=== PATIENT | male | born 2000 | race African-American/Black ===

== ENCOUNTER 2021-03-26 22:08 | Emergency (ER) | payer MEDICAID ==
--- NOTE | 2021-03-27 01:49 | Emergency Department Report ---
ED General Adult HPI - General Chief complaint: Arrhythmia/Palpitations Stated complaint: ANXIETY Source: patient Mode of arrival: Ambulatory Limitations: No Limitations - History of Present Illness Initial comments: 21-year-old male presents to the ED complaint of anxiety attack prior to arrival. Patient states that he drinks several red bull and mix with alcohol x1 week ago. He states since then he has been feeling palpitation but since in the ED palpitation has resolved. He has no known medical history. Patient denies any chest pain, nausea ,vomiting or abdominal pain at present. No acute distress noted .No ill appearance noted. Onset/Timin -: hour(s) Severity scale (0 -10): 0 Associated Symptoms: denies other symptoms - Related Data Allergies Allergy/AdvReac Type Severity Reaction Status Date / Time No Known Allergies Allergy Unverified 03/27/21 00:37 ED Review of Systems ROS: Stated complaint: ANXIETY Other details as noted in HPI Constitutional: denies: chills, fever Eyes: denies: eye pain, eye discharge, vision change ENT: denies: ear pain, throat pain Respiratory: denies: cough, shortness of breath, wheezing Cardiovascular: denies: chest pain, palpitations Endocrine: no symptoms reported Gastrointestinal: denies: abdominal pain, nausea, diarrhea Genitourinary: denies: urgency, dysuria Musculoskeletal: denies: back pain, joint swelling, arthralgia Skin: denies: rash, lesions Neurological: denies: headache, weakness, paresthesias Psychiatric: denies: anxiety, depression Hematological/Lymphatic: denies: easy bleeding, easy bruising ED Past Medical Hx - Past Medical History Previous Medical History?: Yes Hx Asthma: Yes - Surgical History Past Surgical History?: No - Social History Smoking Status: Current Every Day Smoker Substance Use Type: Marijuana ED Physical Exam - General Limitations: No Limitations General appearance: alert, in no apparent distress - Head Head exam: Present: atraumatic, normocephalic - Eye Eye exam: Present: normal appearance - ENT ENT exam: Present: mucous membranes moist - Neck Neck exam: Present: normal inspection - Respiratory Respiratory exam: Present: normal lung sounds bilaterally. Absent: respiratory distress - Cardiovascular Cardiovascular Exam: Present: regular rate, normal rhythm. Absent: systolic murmur, diastolic murmur, rubs, gallop - GI/Abdominal GI/Abdominal exam: Present: soft, normal bowel sounds - Rectal Rectal exam: Present: deferred - Extremities Exam Extremities exam: Present: normal inspection - Back Exam Back exam: Present: normal inspection - Neurological Exam Neurological exam: Present: alert, oriented X3 - Psychiatric Psychiatric exam: Present: normal affect, normal mood - Skin Skin exam: Present: warm, dry, intact, normal color. Absent: rash ED Course Vital Signs 03/27/21 03/27/21 00:22 02:45 Temperature 98.6 F 97.6 F Pulse Rate 86 78 Respiratory 18 18 Rate Blood Pressure 140/84 Blood Pressure 133/78 [Left] O2 Sat by Pulse 99 98 Oximetry ED Medical Decision Making - EKG Data Rate: normal - Medical Decision Making 21-year-old male presents to the ED complaint of anxiety attack prior to arrival. State that he drinks several red bull and mix with alcohol x1 week ago. He states since then he has been feeling palpitation but since in the ED palpitation has resolved. He has no known medical history. Patient denies any chest pain, nausea ,vomiting or abdominal pain at present. No acute distress noted .No ill appearance noted. EKG performed. Normal on phone sinus rhythm with a rate of 80. No ST elevation. Patient texting on phone, alert and oriented x4. Discussed plan of care and discharge instruction. Explain to patient to stop drinking red bulls and alcohol. Verbalized understanding Critical care attestation.: If time is entered above; I have spent that time in minutes in the direct care of this critically ill patient, excluding procedure time. ED Disposition Clinical Impression: Anxiety Disposition: 01 HOME / SELF CARE / HOMELESS Is pt being admited?: No Does the pt Need Aspirin: No Condition: Stable Instructions: Managing Anxiety, Adult Additional Instructions: Stop drinking red bull and alcohol Follow-up with primary care doctor as needed Drink plenty of fluids Continues to have palpitation follow-up with cardiology as needed Referrals: TIMOTHY MILES MD [Staff Physician] - 3-5 Days JANNY RAO MD [Staff Physician] - 3-5 Days Forms: Work/School Release Form(ED)
[2021-03-27 03:33] VITALS: BP 133/78
--- NOTE | 2021-03-28 08:54 | Electrocardiograph Report ---
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
== END 2021-03-27 02:45 | disposition home or self-care (01) ==
LOC: ED 22:08
DX: F41.9 Anxiety disorder, unspecified (principal); J45.909 Unspecified asthma, uncomplicated; F17.200 Nicotine dependence, unspecified, uncomplicated; F12.90 Cannabis use, unspecified, uncomplicated
CPT/HCPCS: 93005; 93010; 99282